=== PATIENT | female | born 1960 | race Caucasian/White ===

== ENCOUNTER → 2017-12-19 | Outpatient (CLI) | payer OTHER | END | disposition home or self-care (01) | LOC: KCIC MRI 15:05 | DX: M47.896 Other spondylosis, lumbar region (principal); M51.46 Schmorl's nodes, lumbar region; M48.061 Spinal stenosis, lumbar region without neurogenic claudication; M25.78 Osteophyte, vertebrae; R60.0 Localized edema; Z98.890 Other specified postprocedural states | CPT/HCPCS: 72148 ==